=== PATIENT | male | born 1950 | race Caucasian/White ===

== ENCOUNTER → 2016-12-21 | Outpatient (CLI) | payer MEDICARE ==
[~2016-12-21] MED LIST: ASPIRIN EC81 MG PO; BRILINTA90 M1 PO; CARVEDILOL12.5 MG PO; CLOPIDOGREL75 M2 PO; COREG 3.125M3.125 MG PO; INDOMETHACIN 2525 MG PO; LIPITOR20 MG PO; LISINOPRIL 10MG10 MG PO; NOMEDS *; PANTOPRAZOLE SO40 M1 PO; PRAVASTATIN SOD80 M1 PO; TESSALON PERLE200 MG PO; ZOLPIDEM 5MG TAB5 MG PO
--- NOTE | 2016-12-21 11:38 | RADIOLOGY REPORT PS360 ---
UGI SERIES W/ AIR HISTORY: Epigastric pain EPIGASTIC ORDERING PHYSICIAN: Jeremy Dean MD PATIENT AGE: 66 years COMPARISON: None FINDINGS: The esophagus, stomach, and duodenum have an unremarkable appearance. There is no evidence of hiatal hernia. No ulcer or mass evident. No mucosal abnormalities apparent. There is normal peristalsis. The duodenal C-loop is nondisplaced. There is a small duodenal diverticulum projecting superiorly off of the transverse portion of the duodenum FLUOROSCOPY TIME : 1 minute and 47 seconds. IMPRESSION: Small duodenal diverticulum otherwise negative upper GI
== END ==
LOC: RAD 09:22
DX: R10.13 Epigastric pain (principal)